=== PATIENT | male | born 1950 | race Asian ===

== ENCOUNTER 2019-08-12 05:09 | Day surgery (SDC) | payer OTHER ==
[~2019-08-12] VITALS: Ht 170.2 cm; Wt 67.1 kg
[2019-08-12] VITALS (12 sets, daily range): BP systolic 108–143; BP diastolic 60–85
[2019-08-12] MEDS ORDERED: celeBREX 200mg Cap **SURGERY PATIENTS ONLY ORAL ONE (06:00)
[2019-08-12] MEDS ORDERED: ceFAZolin 1gm IVPB IVPB ONE ×2 (06:00)
[2019-08-12] MEDS ORDERED: oxyCONTIN 20mg tab ORAL ONE (06:00)
[2019-08-12] MEDS ORDERED: AMLODIPINE BESY10 MG ORAL (06:04)
[2019-08-12] MEDS ORDERED: LIPITOR20 MG ORAL (06:04)
--- NOTE | 2019-08-12 06:50 | NUR ---
celebrex was not given because pt is allergic to sulfa
--- NOTE | 2019-08-12 07:57 | Pre-Procedure Note/Attestation ---
Pre-Procedure Note/Attestation Complete Prior to Procedure Planned Procedure: left Procedure Narrative: shoulder arthroscopy, sad Indications for Procedure Pre-Operative Diagnosis: left shoulder impingement Attestation I attest that I discussed the nature of the procedure; its benefits; risks and complications; and alternatives (and the risks and benefits of such alternatives ), prior to the procedure, with the patient (or the patient's legal procurement representative). I attest that, if there was a reasonable possibility of needing a blood transfusion, the patient (or the patient's legal procurement representative) was given the [facility] standardized written summary, pursuant to the Segundo Leisa Blood Safety Act ([place] Health and Safety Code # 1645, as amended). I attest that I re-evaluated the patient just prior to the surgery and that there has been no change in the patient's H&P, except as documented below: Vinayak Jacobsen MD Aug 12, 2019 07:57
--- NOTE | 2019-08-12 07:57 | Operative Note - PDOC ---
Operative Note Operative Note Pre-op Diagnosis: left shoulder impingement Procedure: see op report Post-op Diagnosis: same as pre-op plus Operative Findings: consistent w/pre-op dx studies Anesthesia: general Specimen: none Complications: none Condition: stable Estimated Blood Loss: none Implant(s) used?: No Vinayak Jacobsen MD Aug 12, 2019 07:57
[2019-08-12] MEDS ORDERED: Duramorph PF 5mg/10ml amp EPIDUR ONE (08:00)
[2019-08-12] MEDS ORDERED: Kenalog-40 1ml Vial IARTIC ONE (08:00)
[2019-08-12] MEDS ORDERED: HYDROmorphone 1mg/ml Carpuject SUBQ PRN (08:00)
[2019-08-12] MEDS ORDERED: Ketorolac 30mg Inj IM ONE (08:00)
[2019-08-12] MEDS ORDERED: HYDROcodone/Acetamin 5/325 tab ORAL PRN (08:00)
[2019-08-12] MEDS ORDERED: Tylenol #3 tab (300mg/30mg) ORAL PRN (08:00)
[2019-08-12] MEDS ORDERED: Bupivacaine 0.5% Inj 30 ml vial INJ ONE (08:36)
[2019-08-12] MEDS ORDERED: Rocuronium Bromide 50mg/5ml Inj IV ONE (08:36)
[2019-08-12] MEDS ORDERED: fentaNYL 100 mcg/2 mL IV ONE (08:42)
[2019-08-12] MEDS ORDERED: Midazolam 2mg/2ml Inj ONE (08:43)
[2019-08-12] MEDS ORDERED: EPINEPHrine 1mg/1ml Amp ONE (08:50)
[2019-08-12] MEDS ORDERED: Ketorolac 30mg Inj ONE (08:50)
[2019-08-12] MEDS ORDERED: Bupivacaine 0.25% Inj 30ml INJ ONE (08:51)
[2019-08-12] MEDS ORDERED: Lidocaine 1% 10mg/ml/EPI 0.01mg/ml 50ml INJ ONE (08:51)
[2019-08-12] MEDS ORDERED: Kenalog-40 1ml Vial ONE ×2 (08:51→09:58)
[2019-08-12] MEDS ORDERED: Duramorph PF 5mg/10ml amp ONE (08:51)
[2019-08-12] MEDS ORDERED: LR 1000ml ONE (09:00)
[2019-08-12] MEDS ORDERED: Sterile Water Irrig 1000ml IRRIG ONE (09:00)
[2019-08-12] MEDS ORDERED: NS Irrig 4000ml IRRIG ONE (09:00)
--- NOTE | 2019-08-12 09:01 | Anethesia Preoperative Eval ---
Anesthesia Pre-op PMH/ROS General Date of Evaluation: Aug 12, 2019 Time of Evaluation: 08:59 Anesthesiologist: Gerber ASA Score: ASA 2 Mallampati Score Class I : Soft palate, uvula, fauces, pillars visible Class II: Soft palate, uvula, fauces visible Class III: Soft palate, base of uvula visible Class IV: Only hard plate visible Mallampati Classification: Class II Surgeon: radha Diagnosis: left shoulder impingment Surgical Procedure: shoulder arthroscopy Anesthesia History: none Social History: smoking, current smoker Family History: no anesthesia problems Allergies: Coded Allergies: IODINE AND IODIDE CONTAINING PRODUC (Verified Allergy, Severe, Shortness of Breath, 08/12/19) SULFA (SULFONAMIDE ANTIBIOTICS) (Verified Allergy, Severe, Shortness of Breath, 08/12/19) ASPIRIN (Verified Adverse Reaction, Intermediate, GI UPSET, 08/11/19) Medications: see eMAR Patient NPO?: Yes NPO Date: Aug 12, 2019 NPO Time: 00:01 Past Medical History Cardiovascular: Reports: HTN Pulmonary: Reports: other - smoker ; Denies: asthma, COPD, KATHY Gastrointestinal/Genitourinary: Denies: GERD, CRI, ESRD, other Neurologic/Psychiatric: Denies: dementia, CVA, depression/anxiety, TIA, other Endocrine: Denies: DM, hypothyroidism, steroids, other HEENT: Denies: cataract (L), cataract (R), glaucoma, KARUK (L), KARUK (R), other Hematology/Immune: Denies: anemia, DVT, bleeding disorder, other Musculoskeletal/Integumentary: Reports: OA; Denies: RA, DJD, DDD, edema, other PSxH Narrative: prostate surgery - no complication Anesthesia Pre-op Phys. Exam Physician Exam Last Vital Signs Date Time Temp Pulse Resp B/P (MAP) Pulse Ox O2 Delivery O2 Flow Rate FiO2 08/12/19 06:01 Room Air 08/12/19 05:47 97.8 58 18 143/72 98 Constitutional: NAD Neurologic: CN 2-12 intact Cardiovascular: RRR Respiratory: CTA Airway Exam Mallampati Classification 2 Mallampati Score: Class II Neck: normal TMD: 2fb ROM: full Dentures: no upper, no lower Anesthesia Pre-op A/P Labs Chemistry Test 08/12/19 05:45 Potassium Level 4.6 MMOL/L (3.5-5.1) Studies Pre-op Studies: EKG - sr Risk Assessment & Plan Assessment: denies changes in health - last smoked 24 hours ago Plan: General - Peripheral nerve block Status Change Before Surgery: No Pre-Antibiotics Drug: ancef Given Within 1 Hr of Incision: Yes Luisana Mayes CRNA Aug 12, 2019 09:01
[2019-08-12] MEDS ORDERED: LR 1000ml 1,000 ML IVLG SCH (09:33)
[2019-08-12] MEDS ORDERED: Propofol 200mg/20ml IV ONE (09:39)
[2019-08-12] MEDS ORDERED: Ropivacaine 5mg/ml Vial 30ml INJ ONE (09:39)
[2019-08-12] MEDS ORDERED: Lidocaine 1% MPF 10mg/ml 5ml ONE (09:39)
[2019-08-12] MEDS ORDERED: Glycopyrrolate 0.2mg/ml 1ml Vial ONE ×2 (09:39→10:23)
[2019-08-12] MEDS ORDERED: Hydromorphone 0.5mg/0.5ml inj IVP PRN (09:45)
[2019-08-12] MEDS ORDERED: Midazolam 2mg/2ml Inj IVP PRN (09:45)
[2019-08-12] MEDS ORDERED: LORazepam Inj 2mg/ml 1ml IV PRN (09:45)
[2019-08-12] MEDS ORDERED: Metoclopramide 10mg/2ml Inj IVP PRN (09:45)
[2019-08-12] MEDS ORDERED: DiphenhydrAMINE 50mg/ml Inj IVP PRN (09:45)
[2019-08-12] MEDS ORDERED: fentaNYL 100 mcg/2 mL IV PRN (09:45)
[2019-08-12] MEDS ORDERED: Neostigmine 1mg/ml 10ml Inj ONE (10:23)
--- NOTE | 2019-08-12 10:52 | Immediate Post-Op Evaluation ---
Immediate Post-Op Evalulation Immediate Post-Op Evalulation Procedure: left shoulder arthroscopy Date of Evaluation: Aug 12, 2019 Time of Evaluation: 10:53 IV Fluids: 600 Blood Products: 0 Estimated Blood Loss: min Urinary Output: 0 Blood Pressure Systolic: 113 Blood Pressure Diastolic: 60 Pulse Rate: 69 Respiratory Rate: 16 O2 Sat by Pulse Oximetry: 98 Temperature (Fahrenheit): 97 Pain Score (1-10): 0 Nausea: No Vomiting: No Complications 0 Patient Status: awake, reacts, patent, none Hydration Status: adequate Drug: Ancef 1g Given Within 1 Hr of Incision: Yes Heidi King MD Aug 12, 2019 10:51
--- NOTE | 2019-08-12 10:52 | 48 Hour Post Anesthesia Eval ---
Post Anesthesia Evaluation Procedure: left shoulder arthroscopy Date of Evaluation: Aug 12, 2019 Airway: patent Nausea: No Vomiting: No Hydration Status: adequate Cardiopulmonary Status: at baseline Mental Status/LOC: patient returned to baseline Post-Anesthesia Complications: 0 Follow-up care needed: ready to discharge Heidi King MD Aug 12, 2019 10:52
[2019-08-12] MEDS ORDERED: D5 1/2NS 1,000 ML IV SCH (16:00)
--- NOTE | 2019-08-12 17:30 | Operative Note - Dictated ---
DATE OF OPERATION: 08/12/2019 PREOPERATIVE DIAGNOSES: 1. Left shoulder impingement syndrome. 2. Left shoulder adhesive capsulitis. POSTOPERATIVE DIAGNOSES: 1. Left shoulder impingement syndrome. 2. Left shoulder adhesive capsulitis. PROCEDURES: 1. Left shoulder arthroscopy with extensive intra-articular debridement. 2. Subacromial decompression bursectomy. SURGEON: Vinayak Jacobsen M.D. ANESTHESIA: Interscalene with general. INDICATION FOR PROCEDURE: The patient is a pleasant gentleman, who has had progressive stiffness and pain in the left shoulder with evidence of impingement, also adhesive capsulitis. decompression along with the capsular release. Risks, limitations, expectations, and complications of the procedure were discussed in detail including injury to the axillary nerve. All questions were addressed. DESCRIPTION OF PROCEDURE: After informed consent was obtained, the patient was brought to the operating room. The patient was placed under general anesthesia, interscalene. Left shoulder was prepped and draped in a sterile manner. Time-out was performed. Inferolateral stab incision was then made. Trocar was introduced into the glenohumeral joint. There was significant erythema along the anterior labrum and superior labrum biceps tendon. Portal was then placed through the rotator interval and a complete release of the capsule and rotator interval was performed. Once that was done, the camera was placed through the rotator interval into the posterior portal. A capsular release was performed. Care was taken to stay just in the capsule, not dissect further and make sure the axillary nerve was protected. Once that was done, the camera was placed in the subacromial space. There was hypertrophic bursal tissue. This was debrided and visualized the anterior lateral acromion. Acromioplasty was started from lateral to medial and completed posterior to anterior. Once that was done, bursectomy was completed. The intra-articular injection was administered. The patient was awoken and taken to recovery room with stable vital signs. ESTIMATED BLOOD LOSS: None. COMPLICATIONS: None. SPECIMENS: None. IMPLANTS: None. Vinayak Jacobsen M.D. DR: CARISSA JOB#: [id number] CC:
== END 2019-08-12 13:00 | disposition home or self-care (01) ==
LOC: SUR 05:09
DX: M75.42 Impingement syndrome of left shoulder (principal); M75.02 Adhesive capsulitis of left shoulder; I10 Essential (primary) hypertension; E78.5 Hyperlipidemia, unspecified; Z79.899 Other long term (current) drug therapy; Z87.891 Personal history of nicotine dependence; M19.90 Unspecified osteoarthritis, unspecified site; Z88.0 Allergy status to penicillin; Z88.6 Allergy status to analgesic agent; Z91.041 Radiographic dye allergy status
CPT/HCPCS: 29823; 36415; 84132; J0171; J0690; J1885; J2250; J2704; J2710; J2795; J3010; J3301; J3490; 94003; 94150